=== PATIENT | female | born 1995 | race Caucasian/White ===

== ENCOUNTER 2016-11-30 07:46 | Emergency (ER) | payer OTHER ==
[~2016-11-30] VITALS: Ht 162.6 cm; Wt 110.2 kg
[~2016-11-30 07:46] MED LIST: TORADOL10 MG PO
[2016-11-30] MEDS ORDERED: ZITHROMAX250 M2 PO (09:16)
[2016-11-30 09:17] VITALS: BP 110/72
--- NOTE | 2016-11-30 09:17 | ED INFLUENZA/URI COMPLAINT ---
History of Present Illness General Chief Complaint: Upper Respiratory Sx/Fever Stated Complaint: URI X 2WEEKS Source: patient Exam Limitations: no limitations Vital Signs & Intake/Output Vital Signs & Intake/Output Vital Signs Date Time Temp Pulse Resp B/P Pulse O2 O2 Flow FiO2 Ox Delivery Rate 11/30 0933 100 Room Air 11/30 0917 98.6 95 20 110/72 99 Room Air 11/30 0804 96.9 96 20 112/83 105 Room Air Allergies Coded Allergies: MDX - Latex (LATEX) (Intermediate, RED PUFFY AND TINGLY FEELING 02/11/15) Reconcile Medications Azithromycin (Zithromax) 250 MG TABLET 1 DP PO AD BRONCHITIS 2 the first day followed by 1 for days 2-5 Ketorolac Tromethamine (Toradol) 10 MG TAB 1 TAB PO TID PRN PAIN Triage Note: C/O COUGH X 2 WEEKS. BODY ACHES HIS AM, WITH CHEST DISCOMFORT WITH COUGH, ALSO C/O OF A "STINGING" SENSATION BELOW R EAR. Triage Nurses Notes Reviewed? yes : No Patient currently breastfeeds: No HPI: 21-year-old female smoker here with complaints of URI symptoms and cough. Her cough started approximately 2 weeks ago, this been dry nonproductive. Over the last few days she has had worsening URI symptoms, chills, body aches, malaise, pain to the anterior portion of the chest on the right side when she takes a deep breath and when she coughs. She does not feel short of breath, there is no wheezing or dyspnea on exertion. She has no unilateral leg swelling or edema. She is on control. There is been no treatment thus far no modifying factors. (ALBERTO HANSEN) Past History Travel History Traveled to [place] past 21 day No Medical History Any Pertinent Medical History? see below for history Hepatic: cholelithiasis Musculoskeletal: TENDONITIS Surgical History Surgical History: non-contributory Psychosocial History What is your primary language Estonian Tobacco Use: Current Not Daily Daily Tobacco Use Amount/Type: =< 4 Cigarettes daily ETOH Use: denies use Family History Hx Contributory? No (ALBERTO HANSEN) Review of Systems Review of Systems Constitutional: Reports: see HPI. EENTM: Reports: no symptoms. Respiratory: Reports: see HPI. Cardiovascular: Reports: see HPI. GI: Reports: no symptoms. Genitourinary: Reports: no symptoms. Musculoskeletal: Reports: no symptoms. Skin: Reports: no symptoms. Neurological/Psychological: Reports: no symptoms. Hematologic/Endocrine: Reports: no symptoms. Immunologic/Allergic: Reports: no symptoms. All Other Systems: Reviewed and Negative (ALBERTO HANSEN) Physical Exam Physical Exam Ears, Nose, Throat: normal ENT inspection, moist mucous membrane, hearing grossly normal, Tympanic normal, pharynx normal Comments: Well-developed well-nourished person in no acute distress HEENT: Normal EENT exam, extraocular motion intact, no nystagmus. Pupils equally round and reactive to light. Nose is atraumatic. External auditory canal and Tympanic membranes clear. Pharynx normal. No swelling or edema. Neck: Supple, no lymphadenopathy, normal range of motion without pain or tenderness Back: Nontender, no CVA tenderness. Full range of motion Cardiovascular: Regular rate and rhythms no murmurs, normal JVP Respiratory: Chest tenderness to the anterior mid sternal region on the right side. No respiratory distress. Faint rhonchi noted bilaterally Abdomen: Soft, nontender nondistended, no appreciable organomegaly. Normal bowel sounds. No ascites Extremity: No edema, no calf tenderness to palpation, normal and equal pulses. Neuro: Alert oriented x3, motor sensory normal, cranial nerves II through XII grossly intact. Skin: No appreciable rash on exposed skin, skin is warm and dry. Psych: Mood and affect is normal, memory and judgment is normal. Core Measures Severe Sepsis Present: No Septic Shock Present: No (ALBERTO HANSEN) Progress Differential Diagnosis: influenza, meningitis, neutropenia, otitis, pneumonia, pharyngitis, sinusitis Plan of Care: Orders Procedure Date/time Status EKG 11/30 0807 Active Initial ED EKG: SINUS TACH AT 100 BPM, INF Q WAVES AND BOARDERLING T WAVE ABNORMALITIES INF. Comments: Signs and symptoms consistent with bronchitis, possible early pneumonia which was discussed with patient. We'll place on antibiotics and recommend close follow-up or return here with worsening symptoms. Consider DVT/PE however with the recent URI symptoms, I find this unlikely. (ALBERTO HANSEN) Departure Departure Disposition: HOME OR SELF CARE Condition: Stable Clinical Impression Primary Impression: Bronchitis Referrals: PATIENT HAS NO PRIMARY CARE DR (PCP/Family) Additional Instructions: Take antibiotics for your infection as directed. Use [id number] multisystem cold medication as needed. Motrin and Tylenol as needed for fever. Drink plenty of fluids. Return or follow-up with your doctor if not better in the next 3-5 days or if you're having continued worsening fevers, nausea, vomiting, shortness of breath, abdominal pain, difficulty swallowing or drinking or worsening flulike illness. Departure Forms: Customer Survey General Discharge Information Prescriptions: Current Visit Scripts Azithromycin (Zithromax) 1 DP PO AD #6 TAB 2 the first day followed by 1 for days 2-5 (ALBERTO HANSEN) PA/GENERAL [employer]ARM [employer] Co-Sign Statement Statement: ED Attending supervision documentation- [] I saw and evaluated the patient. I have also reviewed all the pertinent lab results and diagnostic results. I agree with the findings and the plan of care as documented in the PA's/[employer]ARM [employer]'s documentation. x I have reviewed the ED Record and agree with the PA's/[employer]'s documentation. [] Additions or exceptions (if any) to the PAs/GENERAL [employer]ARM HAND's note and plan are summarized below: [] (KIMMIE BUSBY,TIM)
== END 2016-11-30 09:34 ==
LOC: ERH 07:46
DX: J40 Bronchitis, not specified as acute or chronic (principal); Z72.0 Tobacco use; R07.9 Chest pain, unspecified
CPT/HCPCS: 93005; 93010